=== PATIENT | male | born 1965 | race Caucasian/White ===

== ENCOUNTER 2016-10-03 10:21 | Emergency (ER) | payer BC ==
[~2016-10-03] VITALS: Wt 90.7 kg
[~2016-10-03 10:21] MED LIST: ASPIRIN325 MG PO; ASPIRIN81 MG PO; CYCLOBENZAPRINE10 MG PO; Cimetidine400 MG PO; FLEXERIL10 MG PO; HYDROCODONE BIT1 T11 PO; LIPITOR40 MG PO; METOPROLOL SUCC50 M1 PO; MOTRIN800 MG PO; NAPROSYN500 MG PO; NORCO 325 MG-101 TAB PO; NORCO 325 MG-51 TAB PO; NORCO 5-325 TA1 EACH PO; PARAFON FORTE500 MG PO; PLAVIX75 MG PO; PREDNICOT10 MG PO; VICODIN 5/500 505 MG PO
[2016-10-03] MEDS ORDERED: NAPROSYN500 MG PO (12:10)
[2016-10-03] MEDS ORDERED: CYCLOBENZAPRINE10 MG PO (12:10)
== END 2016-10-03 12:21 | disposition home or self-care (01) ==
LOC: ED 10:21
DX: G89.29 Other chronic pain (principal); M43.6 Torticollis; M54.5 Low back pain; F17.200 Nicotine dependence, unspecified, uncomplicated; Z88.0 Allergy status to penicillin; Z79.899 Other long term (current) drug therapy; Z79.82 Long term (current) use of aspirin

== ENCOUNTER 2017-05-08 13:09 | Emergency (ER) | payer OTHER ==
[~2017-05-08] VITALS: Ht 162.5 cm; Wt 93.0 kg
[2017-05-08] MEDS ORDERED: NAPROSYN500 MG PO (14:42)
[2017-05-08] MEDS ORDERED: CYCLOBENZAPRINE10 MG PO (14:42)
[2017-05-08] MEDS ORDERED: MEDROL DOSEPAK4 MG PO (14:42)
== END 2017-05-08 14:54 | disposition home or self-care (01) ==
LOC: ED 13:09
DX: M54.12 Radiculopathy, cervical region (principal); F17.200 Nicotine dependence, unspecified, uncomplicated; Z79.899 Other long term (current) drug therapy; Z79.82 Long term (current) use of aspirin; Z88.0 Allergy status to penicillin

== ENCOUNTER 2018-02-06 10:37 | Inpatient (IN) | payer OTHER ==
[2018-02-06] VITALS (7 sets, daily range): BP systolic 100–138; BP diastolic 61–81
[~2018-02-06] VITALS: Ht 162.5 cm; Wt 88.1 kg
--- NOTE | ~2018-02-06 | CON ---
[place], [place] REPORT OF CONSULTATION NAME: DIANNA DIALLO UNIT #: [id number] ROOM: 405 DOCTOR: GWENDOLYN STOLL MD BIRTHDATE: [birth year] DOS: 02/07/2018 HISTORY OF PRESENT ILLNESS: This is a 52-year-old gentleman with history of bypass surgery, severe coronary artery disease, history of previous drug abuse, previous alcohol abuse, recent cardiac catheterization revealed two of the 3 grafts are open, the vein graft to the diagonal and FLORES graft to LAD was open. No other grafts were detected. Had an occluded circumflex with intracoronary collaterals. Distal right coronary artery is about 60% lesion, but normal flow. A stress test did not reveal inferior ischemia, hence the patient has been treated medically. Ejection fraction is about 30%-35%. The patient claims that he does not drink any alcohol; however, they have not used any drugs. He readmitted with increasing shortness of breath, no obvious chest pain, mostly chest pressure, no acute EKG changes suggestion of myocardial ischemia as mentioned he had a recent heart catheterization. PAST MEDICAL HISTORY: Coronary artery disease, cervical radiculopathy, hypertension, hyperlipidemia, tobacco abuse, history of alcohol abuse, history of drug abuse. PAST SURGICAL HISTORY: History of multiple stents, bypass surgery. SOCIAL HISTORY: Does not drink alcohol, does not use any drugs now. Smoker of 1 pack per day. FAMILY HISTORY: Positive for coronary artery disease. HOME MEDICATIONS: Atorvastatin, clopidogrel, lisinopril, and metoprolol. REVIEW OF SYSTEMS: CONSTITUTIONAL: No fever, no chills. HEENT: No visual disturbance or hearing problems. CARDIOVASCULAR: Chest pressure, no obvious pain. RESPIRATORY: Does have shortness of breath. ABDOMEN: No nausea, no vomiting. OBJECTIVE: VITAL SIGNS: Blood pressure today is 110/60, patient is in sinus rhythm. HEENT: Unremarkable. NECK: Supple, no JVD. LUNGS: Diminished air entry. HEART: Heart sounds are regular. ABDOMEN: Soft, nontender. NEUROLOGIC: Stable. LABORATORY DATA: Electrolytes are normal. Creatinine is 1.2. Cardiac enzymes are all negative. Hemoglobin and hematocrit within normal limits. Chest x-ray showed atelectasis. Blood cultures are pending. IMPRESSION: The patient with known coronary artery, cardiomyopathy, ischemic, recent cardiac catheterization. The patient has moderate CAD, two of the 3 [place], [place] REPORT OF CONSULTATION NAME: DIANNA DIALLO UNIT #: [id number] ROOM: 405 DOCTOR: JERMAN MORENO,GWENDOLYN BIRTHDATE: [birth year] bypasses are open with LV dysfunction with an ejection fraction of 30%-35%. RECOMMENDATIONS: Intensify the medical regimen, add nitrates to the current regimen and if needed, consideration to be Ranexa if he continues to be symptomatic, add Aldactone to the current regimen. Monitor the renal function closely. If he continues to have problems might have to consider either a redo versus a high risk intervention of the distal right, but as mentioned, there is no ischemia in the inferior wall and the lesion is about borderline the distal RCA, but the ____ is completely occluded with collateralization. Two up to 3 grafts are open. Intensify the medical treatment and probability of repeating an echocardiogram in about 3 months and if the ejection fraction less than 35%, consideration should be given for an ICD and will follow up. GWENDOLYN STOLL MD CM:CONSTR:REPORT OF CONSULTATION 0 02/07/18 0828 interface
[~2018-02-06 10:37] MED LIST changes: +CLINDAMYCIN150 MG PO; +MEDROL DOSEPAK4 MG PO
[2018-02-06 11:07] LABS: BASO # 0.1 10*3/uL (0.0-0.1); BASO % 1.3 % (0.0-1.0); EOS # 0.2 10*3/uL (0.0-0.4); EOS % 2.9 % (1.0-4.0); HEMATOCRIT 46.1 % (42.0-52.0); HEMOGLOBIN 16.3 g/dl (14.0-18.0); LYMPH # 2.4 10*3/uL (1.3-4.4); LYMPH % 30.2 % (27.0-41.0); MEAN CELL VOLUME 90.7 fl (80.0-94.0); MEAN CORPUSCULAR HGB 32.1 pg (27.0-31.0); MEAN CORPUSCULAR HGB CONC 35.4 g/dl (33.0-37.0); MEAN PLATELET VOLUME 10.6 fl (9.6-12.3); MONO # 0.5 10*3/uL (0.1-1.0); MONO % 6.2 % (3.0-9.0); NEUT # 4.7 10*3/uL (2.3-7.9); NEUT % 59.3 % (47.0-73.0); PLATELET COUNT AUTOMATED 203 10*3/uL (130-400); RED BLOOD COUNT 5.08 10*6/uL (4.50-5.90); RED CELL DISTRI WIDTH 12.2 % (0-14.5); WHITE BLOOD COUNT 7.9 10*3/uL (4.8-10.8)
[2018-02-06 11:17] LABS: ACT PARTIAL THROMBO TIME 20.7 SECONDS (20.8-31.5)
[2018-02-06 11:24] LABS: ALBUMIN 3.3 gm/dl (3.1-4.5); ALKALINE PHOSPHATASE 84 U/L (45-117); BUN 12 mg/dl (7-24); CHLORIDE 102 mmol/L (98-107); CREATININE 1.26 mg/dL (0.70-1.30); LIPASE 115 U/L (73-393); SGOT/AST 18 IU/L (3-35); SGPT/ALT 42 U/L (12-78); SODIUM 136 mmol/L (136-145); TOTAL PROTEIN 7.5 gm/dL (6.4-8.2)
[2018-02-06 11:26] LABS: TROPONIN I < 0.015 ng/ml (<0.045)
[2018-02-06] MEDS ORDERED: ZESTRIL,PRINIVIL5 MG PO (11:40)
[2018-02-06] MEDS ORDERED: CLOPIDOGREL75 MG PO (11:40)
[2018-02-07] VITALS: BP 98/63
[2018-02-07 06:26] LABS: ALBUMIN 3.3 gm/dl (3.1-4.5); ALKALINE PHOSPHATASE 83 U/L (45-117); BUN 13 mg/dl (7-24); CHLORIDE 103 mmol/L (98-107); CHOLESTEROL 150 mg/dL (<200); CREATININE 1.13 mg/dL (0.70-1.30); HDL CHOLESTEROL 36 mg/dl (40-60); LDL CHOLESTEROL 81 mg/dL (9-159); PHOSPHOROUS 3.1 mg/dL (2.5-4.9); SGOT/AST 15 IU/L (3-35); SGPT/ALT 39 U/L (12-78); SODIUM 138 mmol/L (136-145); TRIGLYCERIDES 163 mg/dl (<150); VLDL CHOLESTEROL 33 mg/dL (6-40)
[2018-02-07 06:53] LABS: BASO # 0.1 10*3/uL (0.0-0.1); EOS # 0.4 10*3/uL (0.0-0.4); EOS % 4.2 % (1.0-4.0); HEMATOCRIT 44.2 % (42.0-52.0); HEMOGLOBIN 15.2 g/dl (14.0-18.0); LYMPH # 2.5 10*3/uL (1.3-4.4); LYMPH % 29.6 % (27.0-41.0); MEAN CELL VOLUME 91.1 fl (80.0-94.0); MEAN CORPUSCULAR HGB 31.3 pg (27.0-31.0); MEAN CORPUSCULAR HGB CONC 34.4 g/dl (33.0-37.0); MEAN PLATELET VOLUME 10.6 fl (9.6-12.3); MONO # 0.7 10*3/uL (0.1-1.0); MONO % 7.8 % (3.0-9.0); NEUT # 4.8 10*3/uL (2.3-7.9); NEUT % 57.2 % (47.0-73.0); PLATELET COUNT AUTOMATED 198 10*3/uL (130-400); RED BLOOD COUNT 4.85 10*6/uL (4.50-5.90); RED CELL DISTRI WIDTH 12.1 % (0-14.5); WHITE BLOOD COUNT 8.4 10*3/uL (4.8-10.8)
[2018-02-07 08:00] VITALS: BP 112/70; BP 138/84
[2018-02-07 09:00] LABS: VITAMIN D, 25-HYDROXY 29.2 ng/mL (30-100)
[2018-02-07] MEDS ORDERED: ALDACTONE25 MG PO (10:18)
[2018-02-07] MEDS ORDERED: IMDUR SA30 MG PO (10:18)
== END 2018-02-07 10:51 | disposition home or self-care (01) | DRG 303 ==
LOC: ED 10:37 → EDHOLD 12:09 → 4E 12:09
PROVIDERS: Emergency Medicine; Internal Medicine
DX: I25.118 Atherosclerotic heart disease of native coronary artery with other forms of angina pectoris (principal); E87.2 Acidosis; I42.9 Cardiomyopathy, unspecified; E78.5 Hyperlipidemia, unspecified; G89.29 Other chronic pain; M54.5 Low back pain; I10 Essential (primary) hypertension; E66.09 Other obesity due to excess calories; F17.210 Nicotine dependence, cigarettes, uncomplicated; R73.9 Hyperglycemia, unspecified; Z71.6 Tobacco abuse counseling; Z88.0 Allergy status to penicillin; Z95.5 Presence of coronary angioplasty implant and graft; Z95.1 Presence of aortocoronary bypass graft; Z83.3 Family history of diabetes mellitus; Z82.49 Family history of ischemic heart disease and other diseases of the circulatory system; Z79.899 Other long term (current) drug therapy; Z68.33 Body mass index [BMI] 33.0-33.9, adult

== ENCOUNTER 2019-04-14 09:20 | Emergency (ER) | payer OTHER ==
[~2019-04-14] VITALS: Ht 162.5 cm; Wt 81.6 kg
[~2019-04-14 09:20] MED LIST changes: +ALDACTONE25 MG PO; +CLOPIDOGREL75 MG PO; +IMDUR SA30 MG PO; +ZESTRIL,PRINIVIL5 MG PO
[2019-04-14] MEDS ORDERED: CLINDAMYCIN HC300 MG PO (10:16)
== END 2019-04-14 10:25 | disposition home or self-care (01) ==
LOC: ED 09:20
DX: K02.9 Dental caries, unspecified (principal); K08.89 Other specified disorders of teeth and supporting structures; I10 Essential (primary) hypertension; I25.2 Old myocardial infarction; Z88.0 Allergy status to penicillin; Z88.8 Allergy status to other drugs, medicaments and biological substances; Z79.899 Other long term (current) drug therapy; Z95.1 Presence of aortocoronary bypass graft; Z87.891 Personal history of nicotine dependence

== ENCOUNTER 2019-08-28 18:37 | Inpatient (IN) | payer OTHER ==
[2019-08-28] VITALS (7 sets, daily range): BP systolic 128–145; BP diastolic 72–83
[~2019-08-28] VITALS: Ht 162.5 cm; Wt 87.6 kg
[2019-08-28 19:04] LABS: BASO # 0.1 10*3/uL (0.0-0.1); BASO % 0.7 % (0.0-1.0); EOS # 0.2 10*3/uL (0.0-0.4); EOS % 3.3 % (1.0-4.0); HEMATOCRIT 42.8 % (42.0-52.0); LYMPH # 2.8 10*3/uL (1.3-4.4); LYMPH % 38.7 % (27.0-41.0); MEAN CELL VOLUME 91.5 fl (80.0-94.0); MEAN CORPUSCULAR HGB 31.6 pg (27.0-31.0); MEAN CORPUSCULAR HGB CONC 34.6 g/dl (33.0-37.0); MEAN PLATELET VOLUME 9.7 fl (9.6-12.3); MONO # 0.6 10*3/uL (0.1-1.0); MONO % 8.2 % (3.0-9.0); NEUT # 3.5 10*3/uL (2.3-7.9); PLATELET COUNT AUTOMATED 179 10*3/uL (130-400); RED BLOOD COUNT 4.68 10*6/uL (4.50-5.90); RED CELL DISTRI WIDTH 12.3 % (0-14.5); WHITE BLOOD COUNT 7.2 10*3/uL (4.8-10.8)
[2019-08-28 19:15] LABS: ACT PARTIAL THROMBO TIME 26.1 SECONDS (20.0-32.1)
--- NOTE | 2019-08-28 19:15 | NUR ---
aware of pt with pain at this time.
[2019-08-28 19:21] LABS: ALBUMIN 3.2 gm/dl (3.1-4.5); ALKALINE PHOSPHATASE 74 U/L (45-117); BUN 16 mg/dl (7-24); CHLORIDE 108 mmol/L (98-107); CREATININE 1.06 mg/dL (0.70-1.30); POTASSIUM 3.6 mmol/L (3.5-5.1); SGOT/AST 19 IU/L (3-35); SGPT/ALT 35 U/L (12-78); SODIUM 139 mmol/L (136-145); TOTAL PROTEIN 7.1 gm/dL (6.4-8.2); TROPONIN I < 0.015 ng/ml (<0.045)
--- NOTE | 2019-08-28 19:54 | NUR ---
Family at bedside
--- NOTE | 2019-08-28 20:26 | NUR ---
Pt states pain is much better at this time and does not need anything.
--- NOTE | 2019-08-28 21:06 | NUR ---
A 54, admitted to , under the services of TIMOTHY Miller DO with a diagnosis of CHEST PAIN. Chief complaint is CHEST PAIN. Patient arrived via stretcher from ER. Monitor applied. Initial assessment completed. Vital signs taken and recorded. TIMOTHY MILLER DO notified of admission to the unit. Orders received. See assessment for past medical history, medications and allergies. Patient and/or family oriented to unit. [facility]. Clothing/patient valuable form completed. EDGAR EL
--- NOTE | 2019-08-28 21:10 | NUR ---
Pt transferred to floor with all belongings including shoes , glasses and cellphone.Pt transferred on [facility] monitor.
--- NOTE | 2019-08-28 21:13 | NUR ---
PATIENT DOES NOT KNOW HIS HOME MEDICATIONS
[2019-08-29] VITALS: BP 136/75
--- NOTE | 2019-08-29 00:03 | NUR ---
PATIENT SLEEPING. AROUSES EASILY. DENIES ANY NEEDS. DENIES CP. NPO FOR HEART CATH TOMORROW. CALL LIGHT WITHIN REACH, WILL MONITOR
--- NOTE | 2019-08-29 00:20 | NUR ---
SPOKE WITH [facility] AT THIS TIME. GAVE THEM PATIENT DIAGNOSIS AND READ OFF THE NUCLEAR IMAGING PORTION OF THE PATIENTS STRESS TEST THAT WAS PERFORMED YESTERDAY. THEY STATED THEY WOULD CALL IN THE MORNING AFTER GETTING APPROVAL FOR THE CATH WITH FURTHER UPDATES ON WHEN THE PATIENT NEEDED TO BE AT [facility]
--- NOTE | 2019-08-29 02:44 | NUR ---
PATIENT REMAINS ASLEEP. NO DISTRESS NOTED. BREATHING IS EASY AND REGULAR. CALL LIGHT WITHIN REACH, WILL MONITOR
--- NOTE | 2019-08-29 05:57 | NUR ---
SPOKE WITH [facility]. STATED THEY WOULD LIKE THE PATIENT AT THEIR HOSPITAL BY 0930.
--- NOTE | 2019-08-29 06:05 | NUR ---
NOTIFIED DR. WILLIAMSON OF [place] STATING THAT THEY WOULD LIKE THE PATIENT AT THE [facility] BY [id number]
[2019-08-29 06:08] LABS: BASO # 0.1 10*3/uL (0.0-0.1); BASO % 1.2 % (0.0-1.0); EOS # 0.3 10*3/uL (0.0-0.4); EOS % 4.1 % (1.0-4.0); LYMPH # 2.1 10*3/uL (1.3-4.4); LYMPH % 32.7 % (27.0-41.0); MEAN CELL VOLUME 92.9 fl (80.0-94.0); MEAN CORPUSCULAR HGB 31.5 pg (27.0-31.0); MEAN CORPUSCULAR HGB CONC 33.9 g/dl (33.0-37.0); MONO # 0.7 10*3/uL (0.1-1.0); MONO % 10.7 % (3.0-9.0); NEUT # 3.4 10*3/uL (2.3-7.9); NEUT % 51.1 % (47.0-73.0); PLATELET COUNT AUTOMATED 179 10*3/uL (130-400); RED BLOOD COUNT 4.95 10*6/uL (4.50-5.90); RED CELL DISTRI WIDTH 12.1 % (0-14.5); WHITE BLOOD COUNT 6.6 10*3/uL (4.8-10.8)
--- NOTE | 2019-08-29 06:30 | NUR ---
REPORT GIVEN TO GORDY AT [facility]. SHE STATED SHE WANTED THE PATIENT AT THE [facility] BY 0830 INSTEAD OF 0930
--- NOTE | 2019-08-29 06:36 | NUR ---
NOTIFIED DR. WILLIAMSON THAT THIS NURSE JUST GOT OF THE PHONE WITH [facility] AND THEY STATED THAT THEY WOULD LIKE HIM TO HAVE ONE TIME DOSE OF HIS [facility] NOW
[2019-08-29 06:41] LABS: BUN 14 mg/dl (7-24); CHLORIDE 109 mmol/L (98-107); POTASSIUM 3.9 mmol/L (3.5-5.1); SODIUM 136 mmol/L (136-145)
--- NOTE | 2019-08-29 07:46 | NUR ---
Discharge instructions reviewed with patient. Patient receptive and verbalizes understanding. Follow-up care understood. Written instructions given to patient. sent to [facility] for [facility] testing. sent with iv, previous shift called report. 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
== END 2019-08-29 07:46 | disposition other institution (70) | DRG 313 ==
LOC: ED 18:37 → EDHOLD 20:21 → 5E 20:58
PROVIDERS: Family Medicine; Student in an Organized Health Care Education/Training Program; ADMIT Internal Medicine
DX: R07.89 Other chest pain (principal); I25.700 Atherosclerosis of coronary artery bypass graft(s), unspecified, with unstable angina pectoris; E83.41 Hypermagnesemia; E11.65 Type 2 diabetes mellitus with hyperglycemia; F17.210 Nicotine dependence, cigarettes, uncomplicated; G89.29 Other chronic pain; M54.5 Low back pain; E66.9 Obesity, unspecified; I10 Essential (primary) hypertension; E78.5 Hyperlipidemia, unspecified; T45.526A Underdosing of antithrombotic drugs, initial encounter; T38.3X6A Underdosing of insulin and oral hypoglycemic [antidiabetic] drugs, initial encounter; Y92.89 Other specified places as the place of occurrence of the external cause; Z71.6 Tobacco abuse counseling; Z95.1 Presence of aortocoronary bypass graft; Z95.5 Presence of coronary angioplasty implant and graft; Z83.3 Family history of diabetes mellitus; Z82.49 Family history of ischemic heart disease and other diseases of the circulatory system; Z88.0 Allergy status to penicillin; Z88.8 Allergy status to other drugs, medicaments and biological substances; Z79.899 Other long term (current) drug therapy; Z79.84 Long term (current) use of oral hypoglycemic drugs; Z79.02 Long term (current) use of antithrombotics/antiplatelets; Z68.33 Body mass index [BMI] 33.0-33.9, adult

== ENCOUNTER → 2019-08-28 | Outpatient (CLI) | payer OTHER ==
[~2019-08-28] MED LIST changes: +CLINDAMYCIN HC300 MG PO; +Glimepiride1 MG PO; +LOPRESSOR50 M1 PO
--- NOTE | 2019-08-28 07:15 | NUR ---
INFORMED CONSENT OBTAINED FOR LEXISCAN NUCLEAR STRESS TEST WITH DR. STOLL. RESTING EKG NSR WITH A RESTING HR OF 60 WITH BP OF 122/70. LUNGS CLEAR WITH SPO2 OF 99% ON ROOM AIR. PT COMPLETED A 1:00 LEXISCAN PROTOCOL RECEIVING LEXISCAN 0.4 MG IV OVER 10 SECONDS. HAD NO EKG CHANGES. HAD C/O CHEST DISCOMFORT AND SHORTNESS OF BREATH THAT WAS RELIEVED IN RECOVERY. HAD A PEAK HR OF 95 WITH BP OF 132/64. LAST RECOVERY HR OF 94 WITH BP OF 118/74. AWAITING SCANNING IN STABLE CONDITION.
== END | disposition home or self-care (01) ==
LOC: CARD 00:18
DX: I25.9 Chronic ischemic heart disease, unspecified (principal); R94.39 Abnormal result of other cardiovascular function study; I20.9 Angina pectoris, unspecified; R73.03 Prediabetes; R53.81 Other malaise

== ENCOUNTER 2019-12-18 10:11 | Emergency (ER) | payer OTHER ==
[~2019-12-18] VITALS: Ht 162.5 cm; Wt 86.2 kg
[2019-12-18] MEDS ORDERED: NORCO 5-325 TA1 EACH PO (12:13)
== END 2019-12-18 12:16 | disposition home or self-care (01) ==
LOC: ED 10:11
DX: S20.229A Contusion of unspecified back wall of thorax, initial encounter (principal); F17.200 Nicotine dependence, unspecified, uncomplicated; Z88.0 Allergy status to penicillin; Z88.8 Allergy status to other drugs, medicaments and biological substances; Z79.899 Other long term (current) drug therapy; W01.0XXA Fall on same level from slipping, tripping and stumbling without subsequent striking against object, initial encounter; Y93.89 Activity, other specified; Y92.89 Other specified places as the place of occurrence of the external cause; Y99.8 Other external cause status

== ENCOUNTER → 2020-04-08 | Outpatient (CLI) | payer OTHER ==
[~2020-04-08] MED LIST changes: +ASPIRIN81 M1 PO
== END | disposition home or self-care (01) ==
LOC: CARD 01:14
PROVIDERS: ATTEND Internal Medicine Cardiovascular Disease
DX: I20.9 Angina pectoris, unspecified (principal); R53.81 Other malaise

== ENCOUNTER 2020-05-28 14:39 | Emergency (ER) | payer OTHER ==
[~2020-05-28] VITALS: Ht 162.5 cm; Wt 86.2 kg
[2020-05-28 15:50] LABS: BASO # 0.1 10*3/uL (0.0-0.1); BASO % 0.8 % (0.0-1.0); EOS # 0.2 10*3/uL (0.0-0.4); EOS % 2.7 % (1.0-4.0); HEMATOCRIT 43.6 % (42.0-52.0); LYMPH # 1.9 10*3/uL (1.3-4.4); LYMPH % 24.4 % (27.0-41.0); MEAN CORPUSCULAR HGB 31.7 pg (27.0-31.0); MEAN CORPUSCULAR HGB CONC 33.7 g/dl (33.0-37.0); MEAN PLATELET VOLUME 9.5 fl (9.6-12.3); MONO # 0.7 10*3/uL (0.1-1.0); MONO % 9.3 % (3.0-9.0); NEUT # 4.9 10*3/uL (2.3-7.9); NEUT % 62.7 % (47.0-73.0); PLATELET COUNT AUTOMATED 171 10*3/uL (130-400); RED BLOOD COUNT 4.64 10*6/uL (4.50-5.90); RED CELL DISTRI WIDTH 12.9 % (0-14.5); WHITE BLOOD COUNT 7.9 10*3/uL (4.8-10.8)
[2020-05-28 16:00] LABS: ACT PARTIAL THROMBO TIME 25.6 SECONDS (20.0-32.1)
[2020-05-28 16:13] LABS: ALBUMIN 3.4 gm/dl (3.1-4.5); ALKALINE PHOSPHATASE 72 U/L (45-117); BUN 16 mg/dl (7-24); CHLORIDE 109 mmol/L (98-107); CREATININE 1.07 mg/dL (0.70-1.30); POTASSIUM 3.7 mmol/L (3.5-5.1); SGOT/AST 11 IU/L (3-35); SGPT/ALT 27 U/L (12-78); SODIUM 142 mmol/L (136-145); TOTAL PROTEIN 6.7 gm/dL (6.4-8.2)
[2020-05-28 16:30] LABS: TROPONIN I < 0.015 ng/ml (<0.045)
== END 2020-05-28 17:48 | disposition home or self-care (01) ==
LOC: ED 14:39
PROVIDERS: Emergency Medicine
DX: B34.9 Viral infection, unspecified (principal); Z20.822 Contact with and (suspected) exposure to COVID-19; E78.5 Hyperlipidemia, unspecified; I10 Essential (primary) hypertension; E11.9 Type 2 diabetes mellitus without complications; I25.2 Old myocardial infarction; F17.200 Nicotine dependence, unspecified, uncomplicated; Z88.0 Allergy status to penicillin; Z88.5 Allergy status to narcotic agent; Z79.82 Long term (current) use of aspirin; Z79.899 Other long term (current) drug therapy; Z95.818 Presence of other cardiac implants and grafts; Z95.1 Presence of aortocoronary bypass graft

== ENCOUNTER 2020-07-29 10:16 | Emergency (ER) | payer OTHER ==
[~2020-07-29] VITALS: Wt 88.5 kg
[2020-07-29 10:42] LABS: BASO # 0.1 10*3/uL (0.0-0.1); BASO % 0.9 % (0.0-1.0); EOS # 0.2 10*3/uL (0.0-0.4); EOS % 3.1 % (1.0-4.0); HEMATOCRIT 44.1 % (42.0-52.0); LYMPH # 1.9 10*3/uL (1.3-4.4); LYMPH % 27.2 % (27.0-41.0); MEAN CELL VOLUME 91.7 fl (80.0-94.0); MEAN CORPUSCULAR HGB 31.4 pg (27.0-31.0); MEAN CORPUSCULAR HGB CONC 34.2 g/dl (33.0-37.0); MEAN PLATELET VOLUME 10.2 fl (9.6-12.3); MONO # 0.6 10*3/uL (0.1-1.0); MONO % 8.8 % (3.0-9.0); NEUT # 4.2 10*3/uL (2.3-7.9); NEUT % 59.9 % (47.0-73.0); PLATELET COUNT AUTOMATED 194 10*3/uL (130-400); RED BLOOD COUNT 4.81 10*6/uL (4.50-5.90); WHITE BLOOD COUNT 7.1 10*3/uL (4.8-10.8)
[2020-07-29 10:53] LABS: ACT PARTIAL THROMBO TIME 25.9 SECONDS (20.0-32.1)
[2020-07-29 11:01] LABS: ALBUMIN 3.4 gm/dl (3.1-4.5); BUN 11 mg/dl (7-24); CHLORIDE 111 mmol/L (98-107); CREATININE 1.07 mg/dL (0.70-1.30); SGOT/AST 10 IU/L (3-35); SGPT/ALT 31 U/L (12-78); SODIUM 139 mmol/L (136-145)
[2020-07-29 11:06] LABS: ALKALINE PHOSPHATASE 82 U/L (45-117); TOTAL PROTEIN 7.2 gm/dL (6.4-8.2); TROPONIN I 0.039 ng/ml (<0.045)
== END 2020-07-29 11:57 | disposition left against medical advice (07) ==
LOC: ED 10:16
PROVIDERS: Emergency Medicine
DX: R07.9 Chest pain, unspecified (principal); Z88.0 Allergy status to penicillin; Z88.5 Allergy status to narcotic agent; Z79.899 Other long term (current) drug therapy; Z79.82 Long term (current) use of aspirin; Z95.818 Presence of other cardiac implants and grafts; Z95.1 Presence of aortocoronary bypass graft; Z98.890 Other specified postprocedural states

== ENCOUNTER → 2021-04-30 | Outpatient (CLI) | payer SELFPAY ==
[2021-04-30 10:24] LABS: BASO # 0.1 10*3/uL (0.0-0.1); BASO % 1.1 % (0.0-1.0); EOS # 0.2 10*3/uL (0.0-0.4); EOS % 2.7 % (1.0-4.0); HEMATOCRIT 45.6 % (42.0-52.0); LYMPH # 1.8 10*3/uL (1.3-4.4); LYMPH % 27.2 % (27.0-41.0); MEAN CELL VOLUME 91.2 fl (80.0-94.0); MEAN CORPUSCULAR HGB 30.6 pg (27.0-31.0); MEAN CORPUSCULAR HGB CONC 33.6 g/dl (33.0-37.0); MEAN PLATELET VOLUME 10.1 fl (9.6-12.3); MONO # 0.6 10*3/uL (0.1-1.0); MONO % 9.1 % (3.0-9.0); NEUT # 3.9 10*3/uL (2.3-7.9); NEUT % 59.7 % (47.0-73.0); PLATELET COUNT AUTOMATED 194 10*3/uL (130-400); RED CELL DISTRI WIDTH 12.5 % (0-14.5); WHITE BLOOD COUNT 6.6 10*3/uL (4.8-10.8)
[2021-04-30 10:43] LABS: ALBUMIN 3.2 gm/dl (3.1-4.5); ALKALINE PHOSPHATASE 76 U/L (45-117); BUN 10 mg/dl (7-24); CHLORIDE 112 mmol/L (98-107); CHOLESTEROL 171 mg/dL (<200); CREATININE 1.18 mg/dL (0.70-1.30); LDL CHOLESTEROL 118 mg/dL (9-159); POTASSIUM 4.1 mmol/L (3.5-5.1); SGOT/AST 15 IU/L (3-35); SGPT/ALT 41 U/L (12-78); SODIUM 140 mmol/L (136-145); TOTAL PROTEIN 7.2 gm/dL (6.4-8.2); TRIGLYCERIDES 67 mg/dl (<150)
== END | disposition home or self-care (01) ==
LOC: LAB 09:56
PROVIDERS: ATTEND Nurse Practitioner Family
DX: E11.9 Type 2 diabetes mellitus without complications (principal); E78.5 Hyperlipidemia, unspecified

== ENCOUNTER 2022-07-25 15:42 | Emergency (ER) | payer OTHER ==
[~2022-07-25] VITALS: Ht 162.5 cm; Wt 94.3 kg
[~2022-07-25 15:42] MED LIST changes: +ATORVASTATIN CA40 M1 PO; +GLIMEPIRIDE2 MG PO; +Imdur SA60 MG PO; +JANUVIA100 MG PO; +K-TAB10 MEQ PO; +LASIX40 MG PO; +LISINOPRIL5 MG PO; +METOPROLOL TART50 M1 PO; +NITROGLYCERIN0.4 MG SL; +RANOLAZINE ER500 MG PO
[2022-07-25 16:25] LABS: BASO # 0.1 10*3/uL (0.0-0.1); BASO % 0.9 % (0.0-1.0); EOS # 0.2 10*3/uL (0.0-0.4); EOS % 3.3 % (1.0-4.0); LYMPH # 2.2 10*3/uL (1.3-4.4); LYMPH % 31.6 % (27.0-41.0); MEAN CELL VOLUME 93.9 fl (80.0-94.0); MEAN CORPUSCULAR HGB CONC 34.1 g/dl (33.0-37.0); MONO # 0.7 10*3/uL (0.1-1.0); NEUT # 3.8 10*3/uL (2.3-7.9); NEUT % 54.1 % (47.0-73.0); PLATELET COUNT AUTOMATED 173 10*3/uL (130-400)
[2022-07-25 16:43] LABS: ALKALINE PHOSPHATASE 68 U/L (46-116); BUN 13 mg/dl (9-23); CHLORIDE 102 mmol/L (98-107); POTASSIUM 3.2 mmol/L (3.4-5.1); SGPT/ALT 25 U/L (10-49); TOTAL PROTEIN 7.2 gm/dL (6.0-8.0)
[2022-07-25] MEDS ORDERED: OMEPRAZOLE40 MG PO ×2 (18:46→18:58)
== END 2022-07-25 18:52 | disposition home or self-care (01) ==
LOC: ED 15:42
PROVIDERS: Internal Medicine
DX: K21.9 Gastro-esophageal reflux disease without esophagitis (principal); E11.9 Type 2 diabetes mellitus without complications; I25.2 Old myocardial infarction; I10 Essential (primary) hypertension; E78.00 Pure hypercholesterolemia, unspecified; Z88.0 Allergy status to penicillin; Z88.8 Allergy status to other drugs, medicaments and biological substances; Z98.890 Other specified postprocedural states; Z95.5 Presence of coronary angioplasty implant and graft; F17.200 Nicotine dependence, unspecified, uncomplicated

== ENCOUNTER 2023-03-25 17:25 | Emergency (ER) | payer OTHER ==
[~2023-03-25] VITALS: Ht 162.5 cm; Wt 90.7 kg
[~2023-03-25 17:25] MED LIST changes: +OMEPRAZOLE40 MG PO
[2023-03-25 19:11] LABS: BASO # 0.1 10*3/uL (0.0-0.1); BASO % 0.9 % (0.0-1.0); EOS # 0.9 10*3/uL (0.0-0.4); EOS % 9.4 % (1.0-4.0); HEMATOCRIT 45.6 % (42.0-52.0); LYMPH # 1.9 10*3/uL (1.3-4.4); LYMPH % 21.4 % (27.0-41.0); MEAN CELL VOLUME 92.1 fl (80.0-94.0); MEAN CORPUSCULAR HGB 31.3 pg (27.0-31.0); MEAN PLATELET VOLUME 10.5 fl (9.6-12.3); MONO # 0.9 10*3/uL (0.1-1.0); MONO % 10.1 % (3.0-9.0); NEUT # 5.2 10*3/uL (2.3-7.9); PLATELET COUNT AUTOMATED 177 10*3/uL (130-400); RED BLOOD COUNT 4.95 10*6/uL (4.50-5.90); RED CELL DISTRI WIDTH 12.5 % (0-14.5)
[2023-03-25 19:32] LABS: ALKALINE PHOSPHATASE 78 U/L (46-116); BUN 10 mg/dl (9-23); CHLORIDE 104 mmol/L (98-107); LIPASE 40 U/L (12-53); POTASSIUM 3.7 mmol/L (3.4-5.1); SGPT/ALT 23 U/L (5-49); TOTAL PROTEIN 7.2 gm/dL (6.0-8.0)
[2023-03-25 19:36] LABS: BILIRUBIN Negative (Negative); BLOOD 1+ (Negative); CLARITY Clear (Clear); COLOR Yellow (Yellow); GLUCOSE 3+ (Negative); KETONE Trace (Negative); LEUKO ESTERASE Negative (Negative); NITRITE Negative (Negative); SPECIFIC GRAVITY 1.025 (1.001-1.030)
[2023-03-25 19:54] LABS: BACTERIA TRACE; MUCOUS 1+
[2023-03-25] MEDS ORDERED: TRAMADOL HCL50 MG PO (22:17)
== END 2023-03-25 23:04 | disposition home or self-care (01) ==
LOC: ED 17:25
PROVIDERS: Nurse Practitioner
DX: R16.0 Hepatomegaly, not elsewhere classified (principal); R19.7 Diarrhea, unspecified; F17.200 Nicotine dependence, unspecified, uncomplicated; Z88.0 Allergy status to penicillin; Z88.8 Allergy status to other drugs, medicaments and biological substances; Z79.899 Other long term (current) drug therapy; Z95.5 Presence of coronary angioplasty implant and graft

== ENCOUNTER → 2023-04-05 | Outpatient (CLI) | payer OTHER ==
[~2023-04-05] MED LIST changes: +TRAMADOL HCL50 MG PO
== END | disposition home or self-care (01) ==
LOC: MRI 05:12
PROVIDERS: ATTEND Internal Medicine
DX: K76.0 Fatty (change of) liver, not elsewhere classified (principal); K76.89 Other specified diseases of liver

== ENCOUNTER → 2023-05-16 | Outpatient (CLI) | payer OTHER ==
[~2023-05-16] MED LIST changes: +Technetium Tc 99M Medronate 1 KIT KIT IV SCH
== END | disposition home or self-care (01) ==
LOC: NM 02:17
PROVIDERS: ATTEND Internal Medicine Hematology & Oncology
DX: C22.0 Liver cell carcinoma (principal)

== ENCOUNTER → 2024-12-27 | Outpatient (CLI) | payer OTHER ==
[~2024-12-27] MED LIST changes: -Technetium Tc 99M Medronate 1 KIT KIT IV SCH
== END | disposition home or self-care (01) ==
LOC: CARD 12-19 09:30
PROVIDERS: ATTEND Internal Medicine
DX: R06.02 Shortness of breath (principal); I50.20 Unspecified systolic (congestive) heart failure